=== PATIENT | male | born 1970 | race Caucasian/White ===

== ENCOUNTER 2016-10-17 14:54 | Observation (INO) | payer MEDICAID ==
[2016-10-17 15:01] VITALS: BMI 26.7
[2016-10-17] MEDS ORDERED: Sodium Chloride 0.9% 1,000 ML IV STA ×2 (15:32→18:20)
[2016-10-17] MEDS ORDERED: Morphine 4 mg/ml ISec IVP STA (15:32)
[2016-10-17 15:55] LABS: ADD MANUAL DIFF? NO
[2016-10-17 16:03] LABS: BASO # 0.02 K/mm3 (0.0-2.0); BASO % 0.6 % (0.0-3.0); EOS % 1.1 % (1.5-5.0); GRAN # 1.47 (1.4-6.5); GRAN % 41.7 % (50.0-68.0); LYMPH # 1.7 (1.2-3.4); LYMPH % 48.6 % (22.0-35.0); MEAN CELL VOLUME 77.5 fL (80.0-105.0); MEAN CORPUSCULAR HGB CONC 32.3 g/dl (31.0-37.0); MEAN PLATELET VOLUME 10.1 fl (7.0-11.0); MONO # 0.3 (0.1-0.6); PLATELET COUNT 194 10^3/uL (120.0-450.0); RED CELL DISTRIBUTION WIDTH 14.4 % (11.5-14.5); WHITE BLOOD COUNT 3.5 10^3/ul (4.5-11.0)
[2016-10-17 16:09] LABS: ALB/GLOB RATIO 1.1 (1.1-1.8); ALKALINE PHOSPHATASE 65 U/L (38-133); ALT/SGPT 229 U/L (7-56); AST/SGOT 128 U/L (15-59); BILIRUBIN,TOTAL 0.6 mg/dL (0.2-1.3); BLOOD UREA NITROGEN 12 mg/dL (7-21); CALCIUM 9.4 mg/dL (8.4-10.5); CARBON DIOXIDE 30 mmol/L (21-33); CHLORIDE 97 mmol/L (98-107); GFR AFRICAN-AMERICAN > 60; GLUCOSE,RANDOM 167 mg/dL (70-110); LIPASE 215 U/L (23-300); POTASSIUM 4.4 mmol/L (3.6-5.0); SODIUM 137 mmol/L (132-148); TOTAL PROTEIN 8.2 g/dL (5.8-8.3)
--- NOTE | 2016-10-17 16:16 | ED PDOC ---
Arrival/HPI - General Chief Complaint: Headache Time Seen by Provider: 10/17/16 15:15 Historian: Patient - History of Present Illness Narrative History of Present Illness (Text): 10/17/16 16:13 Patient past medical history of DM, complains of constant nonradiating squeezing pain to the epigastric area x 1 week. patient has been taking Pepcid and Zofran, which was described by his pmd x 4 days with no relief. Symptoms are associated nausea and decreased appetite, worse with eating, reports not having similar symptoms in the past. Otherwise: (-) vomiting, (-) diarrhea, (-) fever, (-) urinary symptoms, (-) chest pain, (-) SOB, (-) h/o GB disease or PUD , (-) melena, (-) hematochezia. Has no history of prior abdominal surgery. Patient also reports of a pressure headache which started yesterday, which he has had multiple times in the past, normally takes advil with relief. PMD Jordi Past Medical History - Provider Review Nursing Documentation Reviewed: Yes - Infectious Disease Hx of Infectious Diseases: None - Tetanus Immunization Tetanus Immunization: Unknown - Past Medical History Past Medical History: No Previous - Cardiac Hx Cardiac Disorders: Yes Hx Hypertension: Yes - Pulmonary Hx Respiratory Disorders: No - Neurological Hx Neurological Disorder: No - HEENT Hx HEENT Disorder: No - Renal Hx Renal Disorder: No - Endocrine/Metabolic Hx Endocrine Disorders: Yes Hx Diabetes Mellitus Type 2: Yes - Hematological/Oncological Hx Blood Disorders: No - Integumentary Hx Dermatological Disorder: No - Musculoskeletal/Rheumatological Hx Musculoskeletal Disorders: No - Gastrointestinal Hx Gastrointestinal Disorders: Yes Hx Gastroesophageal Reflux: Yes - Genitourinary/Gynecological Hx Genitourinary Disorders: No - Psychiatric Hx Psychophysiologic Disorder: No Hx Depression: No Hx Emotional Abuse: No Hx Physical Abuse: No Hx Substance Use: No - Past Surgical History Past Surgical History: No Previous - Anesthesia Hx Anesthesia: No Hx Anesthesia Reactions: No - Suicidal Assessment Feels Threatened In Home Enviroment: No Family/Social History - Physician Review Nursing Documentation Reviewed: Yes Family/Social History: No Known Family HX Smoking Status: Never Smoked Hx Alcohol Use: No Hx Substance Use: No Hx Substance Use Treatment: No Allergies/Home Meds Allergies/Adverse Reactions: Allergies No Known Allergies Allergy (Verified 10/17/16 15:01) Home Medications: Home Meds Medication Instructions Recorded Confirmed Atorvastatin Calcium [Lipitor] 40 mg PO DAILY 07/05/12 10/17/16 Famotidine [Pepcid] 40 mg PO DAILY 10/17/16 10/17/16 Ondansetron HCl [Zofran] 4 mg PO PRN PRN 10/17/16 10/17/16 Sitagliptin Phos/Metformin HCl 1 tab PO BID 10/17/16 10/17/16 [Janumet 50-1,000 mg Tablet] glyBURIDE [Micronase] 0 mg PO DAILY 10/17/16 10/17/16 Review of Systems - Review of Systems Constitutional: Normal. absent: Fatigue, Weight Change, Fevers Respiratory: Normal. absent: SOB, Cough, Sputum Cardiovascular: Normal. absent: Chest Pain, Palpitations, Edema Gastrointestinal: Normal, Abdominal Pain, Nausea, Appetite Changes. absent: Stool Changes, Constipation, Vomiting Genitourinary Male: Normal. absent: Dysuria, Frequency, Hematuria Musculoskeletal: Normal. absent: Arthralgias, Back Pain, Neck Pain Skin: Normal. absent: Rash, Pruritis, Skin Lesions Neurological: Normal, Headache. absent: Dizziness, Focal Weakness Physical Exam - Physical Exam Narrative Physical Exam (Text): 10/17/16 16:17 GENERAL APPEARANCE: Patient is awake, alert, oriented x 3, in mild painful distress. SKIN: Warm, dry; (-) cyanosis. EYES: (-) conjunctival pallor, (-) scleral icterus. ENMT: Mucous membranes dry. NECK: (-) tenderness, (-) stiffness, (-) lymphadenopathy. CHEST AND RESPIRATORY: (-) rales, (-) rhonchi, (-) wheezes; breath sounds equal bilaterally. HEART AND CARDIOVASCULAR: (-) irregularity; (-) murmur, (-) gallop. ABDOMEN AND GI: (-) distention. Bowel sounds active; (+) epigastric tenderness , (-) chávez's sign, (-) guarding, (-) rebound, (-) palpable masses, (-) CVA tenderness. EXTREMITIES: (-) deformity, (-) edema, (+) distal pulses. NEURO AND PSYCH: Mental status as above; (-) focal findings. Vital Signs Temp Pulse Resp BP Pulse Ox 10/17/16 21:10 94 H 16 132/94 H 99 10/17/16 19:07 108 H 18 142/92 H 99 10/17/16 18:37 100 H 18 132/79 99 10/17/16 16:02 102 H 17 135/86 99 10/17/16 15:01 98 F 94 H 16 129/88 100 Medical Decision Making ED Course and Treatment: 10/17/16 16:18 46 yo M past medical history diabetes, presents with one-week history of epigastric pain. Plan: -- Labs -- IV fluids -- Urinalysis -- EKG -- Morphine / Reglan / Pepcid -- Reassess and disposition -- US ABD Diagnostic results reviewed and discussed with the patient. Based on history, exam and diagnostic results plan will be for inpatient admission. Call placed to Dr. Bacon and case discussed, he agrees with plan for inpatient treatment. Requesting Dr. Orozco for surgical consult and Dr. Balderrama for GI. Patient states he fully agrees with and understands current plan and care. Verbalized and repeated understanding of current diagnosis and the need for inpatient treatment. I have given the patient opportunity to ask any additional questions. Bridge orders and consults placed. Re-evaluation Time: 17:30 Reassessment Condition: Re-examined, Improving,but remains with symptoms ( Patient laying in bed in no acute distress, abdomen remains soft with continued epigastric tenderness. ) - Lab Interpretations Lab Results: 10/17/16 15:50 10/17/16 15:50 Lab Results 10/17/16 19:09: Urine Color Yellow, Urine Appearance Clear, Urine pH 7.0, Ur Specific Eden 1.010, Urine Protein Negative, Urine Glucose (UA) 250 H, Urine Ketones Negative, Urine Blood Negative, Urine Nitrate Negative, Urine Bilirubin Negative, Urine Urobilinogen 0.2, Ur Leukocyte Esterase Small H, Urine RBC Negative, Urine WBC 0 - 2, Ur Epithelial Cells 0 - 2, Urine Bacteria Neg 10/17/16 15:50: Sodium 137, Potassium 4.4, Chloride 97 L, Carbon Dioxide 30, Anion Gap 14, BUN 12, Creatinine 0.8, Est GFR ( Amer) > 60, Est GFR (Non- Af Amer) > 60, Random Glucose 167 H, Calcium 9.4, Total Bilirubin 0.6, AST 128 H , ALT 229 H, Alkaline Phosphatase 65, Troponin I < 0.01, Total Protein 8.2, Albumin 4.2, Globulin 3.9, Albumin/Globulin Ratio 1.1, Lipase 215 10/17/16 15:50: PT 10.5, INR 0.97, APTT 28.3 10/17/16 15:50: WBC 3.5 L D, RBC 5.55, Hgb 13.9 L, Hct 43.0, MCV 77.5 L, MCH 25.0, MCHC 32.3, RDW 14.4, Plt Count 194, MPV 10.1, Gran % 41.7 L, Lymph % (Auto ) 48.6 H, Borden % (Auto) 8.0 H, Eos % (Auto) 1.1 L, Baso % (Auto) 0.6, Gran # 1.47, Lymph # 1.7, Borden # 0.3, Eos # 0.0, Baso # 0.02 I have reviewed the lab results: Yes (LFTs slightly elevated, WBC wnl. ) - RAD Interpretation Narrative RAD Interpretations (Text): 10/17/16 18:19 US abd: FINDINGS: LIVER: Measures approximately 15.6 cm. Smooth contour however slight increased l echogenicity of the liver parenchyma suggesting fatty infiltration. . No mass. No intrahepatic bile duct dilatation. GALLBLADDER: Gallbladder is physiologically distended. Small approximately 4.4 mm echogenic focus within the gallbladder lumen could represent gallbladder calculus and or polyp. COMMON BILE DUCT: Measures approximately 3.2 mm. No stones. No dilatation. PANCREAS: Visualized portions of the pancreas unremarkable. RIGHT KIDNEY: Measures approximately 11.3 x 5.4 x 4.5cm. Normal echogenicity. No calculus, mass, or hydronephrosis. LEFT KIDNEY: Measures approximately 11.4 x 5.6 x 5.3cm. Normal echogenicity. No calculus, mass, or hydronephrosis. SPLEEN: Exhibits normal size measuring approximately 11.3 cm in greatest dimension. No splenic mass collection or calcification. AORTA: No aneurysmal dilatation. IVC: Unremarkable. OTHER FINDINGS: None. IMPRESSION: Mild fatty hepatic infiltration. Small intraluminal gallbladder calculus and/ or gallbladder polyp as described. Radiology Orders: 10/17/16 15:32 ABDOMEN COMPLETE [US] Stat - EKG Interpretation EKG Interpretation (Text): 10/17/16 20:10 EKG: Sinus tach at 102bpm, (-) acute ST changes. Interpreted by ED Physician: Yes Type: 12 lead EKG - Medication Orders Current Medication Orders: Famotidine (Pepcid) 40 mg IV BID MARIN Fluticasone Propionate (Flonase) 1 actuation NS DAILY [facility] Hydromorphone HCl (Dilaudid) 0.5 mg IVP Q4H PRN PRN Reason: Pain, moderate (4-7) Sodium Chloride (Sodium Chloride 0.9%) 1,000 mls @ 100 mls/hr IV .Q10H STA Stop: 10/18/16 04:19 Last Admin: 10/17/16 18:55 Dose: 100 mls/hr Insulin Human Regular (Humulin R Low) 0 units SC ACHS MARIN PRN Reason: Protocol Loratadine (Claritin) 10 mg PO DAILY [facility] Montelukast Sodium (Singulair) 10 mg PO HS MARIN Last Admin: 10/17/16 23:46 Dose: 10 mg Ondansetron HCl (Zofran Inj) 4 mg IVP Q4 PRN PRN Reason: Nausea/Vomiting Last Admin: 10/17/16 23:47 Dose: 4 mg Pantoprazole Sodium (Protonix Inj) 40 mg IVP Q12 MARIN Discontinued Medications Famotidine (Pepcid) 20 mg IVP STAT STA Stop: 10/17/16 15:33 Last Admin: 10/17/16 15:51 Dose: 20 mg Sodium Chloride (Sodium Chloride 0.9%) 1,000 mls @ 1,000 mls/hr IV .Q1H STA Stop: 10/17/16 16:31 Last Admin: 10/17/16 15:52 Dose: 1,000 mls/hr Famotidine 40 mg/ Sodium (Chloride) 254 mls @ 508 mls/hr IV STAT STA Stop: 10/17/16 23:33 Last Admin: 10/18/16 00:31 Dose: 508 mls/hr Metoclopramide HCl (Reglan) 10 mg IVP STAT STA Stop: 10/17/16 15:33 Last Admin: 10/17/16 15:51 Dose: 10 mg Morphine Sulfate (Morphine) 4 mg IVP STAT STA Stop: 10/17/16 15:33 Last Admin: 10/17/16 15:51 Dose: 4 mg Re-Assess: SHAGUFTA Pain Assessment Document 10/17/16 16:51 SJ (Rec: 10/17/16 23:46 [facility] [id number]) Pain Reassessment Is this a pain reassessment? Yes Sleep Is patient sleeping during reassessment? Yes - PA / ALARM SIGNALER / Resident Statement MD/DO has reviewed & agrees with the documentation as recorded. Disposition/Present on Arrival - Present on Arrival Any Indicators Present on Arrival: No History of DVT/PE: No History of Uncontrolled Diabetes: No Urinary Catheter: No History of Decub. Ulcer: No History Surgical Site Infection Following: None - Disposition Have Diagnosis and Disposition been Completed?: Yes Diagnosis: Abdominal pain, Biliary colic, Acute cholecystitis Disposition: HOSPITALIZED Disposition Time: 18:00 Patient Plan: Admission Patient Problems: Current Active Problems Problem Status Onset Abdominal pain Acute Acute cholecystitis Acute Biliary colic Acute Condition: STABLE
[2016-10-17 16:19] LABS: INR 0.97 (0.93-1.08); PARTIAL THROMBOPLASTIN TIME 28.3 Seconds (23.7-30.8)
[2016-10-17 16:57] LABS: TROPONIN I < 0.01 ng/mL
--- NOTE | 2016-10-17 17:05 | US ---
HISTORY: epigastric pain COMPARISON: None. TECHNIQUE: Sonographic evaluation of the abdomen. FINDINGS: LIVER: Measures approximately 15.6 cm. Smooth contour however slight increased l echogenicity of the liver parenchyma suggesting fatty infiltration. . No mass. No intrahepatic bile duct dilatation. GALLBLADDER: Gallbladder is physiologically distended. Small approximately 4.4 mm echogenic focus within the gallbladder lumen could represent gallbladder calculus and or polyp. COMMON BILE DUCT: Measures approximately 3.2 mm. No stones. No dilatation. PANCREAS: Visualized portions of the pancreas unremarkable. RIGHT KIDNEY: Measures approximately 11.3 x 5.4 x 4.5cm. Normal echogenicity. No calculus, mass, or hydronephrosis. LEFT KIDNEY: Measures approximately 11.4 x 5.6 x 5.3cm. Normal echogenicity. No calculus, mass, or hydronephrosis. SPLEEN: Exhibits normal size measuring approximately 11.3 cm in greatest dimension. No splenic mass collection or calcification. AORTA: No aneurysmal dilatation. IVC: Unremarkable. OTHER FINDINGS: None. IMPRESSION: Mild fatty hepatic infiltration. Small intraluminal gallbladder calculus and/or gallbladder polyp as described.
[2016-10-17 19:29] LABS: URINE BILIRUBIN NEGATIVE (NEGATIVE); URINE BLOOD NEGATIVE (NEGATIVE); URINE GLUCOSE (UA) 250 mg/dL (NEGATIVE); URINE KETONE NEGATIVE (NEGATIVE); URINE LEUKOCYTE ESTERASE SMALL Leu/uL (NEGATIVE); URINE PROTEIN NEGATIVE mg/dL (<30 mg/dL); URINE UROBILINOGEN 0.2 E.U./dL (<1 E.U./dL)
[2016-10-17 19:36] LABS: URINE APPEARANCE CLEAR (CLEAR); URINE COLOR YELLOW (YELLOW)
[2016-10-17 19:48] LABS: URINE BACTERIA NEG (NEG); URINE EPITHELIAL CELLS 0 - 2 /hpf (0-5); URINE RBC NEGATIVE /hpf (0-2); URINE WBC 0 - 2 /hpf (0-6)
[2016-10-17] MEDS ORDERED: Morphine 2 mg/ml ISec IVP PRN (22:09)
[2016-10-17] MEDS ORDERED: HYDROmorphone 0.5 mg/0.5 ml ISec IVP PRN (22:26)
[2016-10-17] MEDS ORDERED: SODIUM CHLORIDE 0.9% IV STA (23:04)
[2016-10-17] MEDS ORDERED: FAMOTIDINE IV STA (23:04)
--- NOTE | 2016-10-17 23:25 | CP.PCM.CON ---
History of Present Illness - History of Present Illness History of Present Illness: General Surgery Dr. Orozco HPI: 46 y/o Irish M w/ PMHx of HTN, NIDDM, HLD, and GERD presents to the ED w / c/o bloating and nausea x1wk. Pt states he has has this symptoms off and on in but never this long or this bad. Pt states his abd feels distended and skin feels ready to split open. Pt has associated stabbing, squeezing epigastric pain. Both bloating and epigastric pain made worse by drinking milk. Pt's chronic reflux has also been worsening despite taking both omeprazole and Pepcid daily. Pt reports nausea but no vomiting w/ decreased desire for food as well as decreased hunger. In addition, pt reports, and confirms, soaking night sweats and chills x1wk. Pt admits to 1 episode of diarrhea daily that is preceded by intense abd cramping. Cramping and diarrhea occurs once per day but is not consistent on time of day in which it occurs. (+) headaches (chronic), dizziness, lightheadedness, myalgia. (-) CP, SOB, constipation, paresthesia, weakness, edema. PMHx: see above Meds: reviewed in chart NKDA PSHx: denies SHx: denies tobacco, EtOH, drugs FHx: mother - CVA, ; father - SCD Review of Systems - Review of Systems All systems: reviewed and no additional remarkable complaints except (see HPI) Past Patient History - Infectious Disease Hx of Infectious Diseases: None - Tetanus Immunizations Tetanus Immunization: Unknown - Past Social History Smoking Status: Never Smoked - CARDIAC Hx Cardiac Disorders: Yes Hx Hypertension: Yes - PULMONARY Hx Respiratory Disorders: No - NEUROLOGICAL Hx Neurological Disorder: No - HEENT Hx HEENT Problems: No - RENAL Hx Chronic Kidney Disease: No - ENDOCRINE/METABOLIC Hx Endocrine Disorders: Yes Hx Diabetes Mellitus Type 2: Yes - HEMATOLOGICAL/ONCOLOGICAL Hx Blood Disorders: No - INTEGUMENTARY Hx Dermatological Problems: No - MUSCULOSKELETAL/RHEUMATOLOGICAL Hx Musculoskeletal Disorders: No - GASTROINTESTINAL Hx Gastrointestinal Disorders: Yes Hx Gastroesophageal Reflux: Yes - GENITOURINARY/GYNECOLOGICAL Hx Genitourinary Disorders: No - PSYCHIATRIC Hx Psychophysiologic Disorder: No Hx Depression: No Hx Emotional Abuse: No Hx Physical Abuse: No Hx Substance Use: No - SURGICAL HISTORY Hx Surgeries: No - ANESTHESIA Hx Anesthesia: No Hx Anesthesia Reactions: No Meds Allergies/Adverse Reactions: Allergies Allergy/AdvReac Type Severity Reaction Status Date / Time No Known Allergies Allergy Verified 10/17/16 15:01 - Medications Medications: Current Medications Famotidine (Pepcid) 40 mg IV BID [facility] Fluticasone Propionate (Flonase) 1 actuation NS DAILY [facility] Hydromorphone HCl (Dilaudid) 0.5 mg IVP Q4H PRN PRN Reason: Pain, moderate (4-7) Sodium Chloride (Sodium Chloride 0.9%) 1,000 mls @ 100 mls/hr IV .Q10H STA Stop: 10/18/16 04:19 Last Admin: 10/17/16 18:55 Dose: 100 mls/hr Famotidine 40 mg/ Sodium (Chloride) 254 mls @ 508 mls/hr IV STAT STA Stop: 10/17/16 23:33 Insulin Human Regular (Humulin R Low) 0 units SC ACHS MARIN PRN Reason: Protocol Loratadine (Claritin) 10 mg PO DAILY [facility] Montelukast Sodium (Singulair) 10 mg PO HS [facility]IN Ondansetron HCl (Zofran Inj) 4 mg IVP Q4 PRN PRN Reason: Nausea/Vomiting Pantoprazole Sodium (Protonix Inj) 40 mg IVP DAILY [facility]IN Physical Exam - Constitutional Appears: Non-toxic, No Acute Distress - Head Exam Head Exam: NORMAL INSPECTION - Eye Exam Eye Exam: Normal appearance - ENT Exam ENT Exam: Mucous Membranes Moist - Respiratory Exam Respiratory Exam: NORMAL BREATHING PATTERN. absent: Accessory Muscle Use, Respiratory Distress - Cardiovascular Exam Cardiovascular Exam: Tachycardia, REGULAR RHYTHM. absent: Bradycardia - GI/Abdominal Exam GI & Abdominal Exam: Distended (minimal), Soft, Tenderness (epigastric TTP ). absent: Guarding, Hernia, Rebound, Rigid Additional comments: (-) Preston's sign - Extremities Exam Extremities exam: Positive for: normal inspection. Negative for: pedal edema, tenderness - Neurological Exam Neurological exam: Alert, Oriented x3 - Psychiatric Exam Psychiatric exam: Normal Affect, Normal Mood - Skin Skin Exam: Dry, Intact, Normal Color, Warm Results - Vital Signs Recent Vital Signs: Last Vital Signs Temp 98 F 10/17/16 15:01 Pulse 94 H 10/17/16 21:10 Resp 16 10/17/16 21:10 BP 132/94 H 10/17/16 21:10 Pulse Ox 99 10/17/16 21:10 - Labs Result Diagrams: 10/17/16 15:50 10/17/16 15:50 Labs: Laboratory Results - last 24 hr 10/17/16 22:26 POC Glucose (mg/dL) 119 H - Imaging and Cardiology US - abdomen Status: Image reviewed by me, Report reviewed by me Assessment & Plan - Assessment and Plan (Free Text) Assessment: 46 y/o M w/ epigastric pain and nausea 2/2 GB pathology vs PUD w/ underlying liver pathology - NPO, IVF - pain management - anti-emetics - transaminitis w/ normal T. bili and alk phos suggests liver pathology rather than GB - Likely GB polyp on US; no signs of acute cholecystitis - recommend EGD for evaluation of refractory GERD - f/u GI recs Will discuss w/ Dr. Ernesto Larkin DO PGY1
[2016-10-18 07:41] VITALS: BP 115/82; PULSE 96; RESP 20; TEMP 97.6; O2SAT 98
[2016-10-18] MEDS: Insulin Reg-LOW-Coverage SC SCH ×3 (08:36→22:15)
--- NOTE | 2016-10-18 08:56 | CP.PCM.PN ---
Subjective - Date & Time of Evaluation Date of Evaluation: 10/18/16 Time of Evaluation: 07:00 - Subjective Subjective: General Surgery Dr. Orozco Pt S&E @bedside. NAEO. pain and nausea improved. c/o pressure behind his eyes x2days but headache improved from last night. denies vomiting. NPO but requesting food. Objective - Vital Signs/Intake and Output Vital Signs (last 24 hours): Temp Pulse Resp BP Pulse Ox 97.6 F 96 H 20 115/82 98 10/18/16 06:00 10/18/16 06:00 10/18/16 06:00 10/18/16 06:00 10/18/16 06:00 Intake and Output: 10/18/16 10/18/16 06:59 18:59 Intake Total 860 Output Total 500 Balance 360 - Medications Medications: Current Medications Famotidine (Pepcid) 40 mg IV BID [facility] Fluticasone Propionate (Flonase) 1 actuation NS DAILY [facility] Hydromorphone HCl (Dilaudid) 0.5 mg IVP Q4H PRN PRN Reason: Pain, moderate (4-7) Last Admin: 10/18/16 03:15 Dose: 0.5 mg Insulin Human Regular (Humulin R Low) 0 units SC ACHS MARIN PRN Reason: Protocol Last Admin: 10/18/16 08:36 Dose: 1 units Loratadine (Claritin) 10 mg PO DAILY [facility] Montelukast Sodium (Singulair) 10 mg PO HS MARIN Last Admin: 10/17/16 23:46 Dose: 10 mg Ondansetron HCl (Zofran Inj) 4 mg IVP Q4 PRN PRN Reason: Nausea/Vomiting Last Admin: 10/17/16 23:47 Dose: 4 mg Pantoprazole Sodium (Protonix Inj) 40 mg IVP Q12 MARIN - Labs Labs: PT 10.5 Seconds (9.9-11.8) 10/17/16 15:50 INR 0.97 (0.93-1.08) 10/17/16 15:50 APTT 28.3 Seconds (23.7-30.8) 10/17/16 15:50 - Constitutional Appears: Non-toxic, No Acute Distress - Head Exam Head Exam: NORMAL INSPECTION - Eye Exam Eye Exam: Normal appearance - ENT Exam ENT Exam: Mucous Membranes Moist - Respiratory Exam Respiratory Exam: NORMAL BREATHING PATTERN. absent: Accessory Muscle Use, Respiratory Distress - Cardiovascular Exam Cardiovascular Exam: absent: Bradycardia, Tachycardia - GI/Abdominal Exam GI & Abdominal Exam: Distended (minimal), Guarding (voluntary), Soft, Tenderness (epigatric TTP). absent: Rigid, Hernia, Mass, Rebound - Neurological Exam Neurological Exam: Alert, Awake, Oriented x3 - Psychiatric Exam Psychiatric exam: Normal Affect, Normal Mood - Skin Skin Exam: Dry, Intact, Normal Color, Warm Assessment and Plan - Assessment and Plan (Free Text) Assessment: 46 y/o M w/ epigastric abd pain - f/u GI recs - cont pain management - cont PPI/H2 bong - anti-emetic - f/u AM labs Further recs per Dr. Ernesto Larkin DO PGY1
[2016-10-18 09:30] LABS: ADD MANUAL DIFF? NO
[2016-10-18 09:36] LABS: BASO # 0.02 K/mm3 (0.0-2.0); BASO % 0.4 % (0.0-3.0); EOS # 0.1 (0.0-0.7); GRAN # 2.27 (1.4-6.5); GRAN % 45.5 % (50.0-68.0); HEMATOCRIT 42.1 % (42.0-52.0); LYMPH # 2.3 (1.2-3.4); LYMPH % 45.5 % (22.0-35.0); MEAN CELL VOLUME 77.4 fL (80.0-105.0); MEAN CORPUSCULAR HEMOGLOBIN 25.2 pg (25.0-35.0); MEAN CORPUSCULAR HGB CONC 32.5 g/dl (31.0-37.0); MEAN PLATELET VOLUME 9.7 fl (7.0-11.0); MONO # 0.4 (0.1-0.6); MONO % 7.6 % (1.0-6.0); PLATELET COUNT 198 10^3/uL (120.0-450.0); RED CELL DISTRIBUTION WIDTH 14.3 % (11.5-14.5)
--- NOTE | 2016-10-18 09:56 | CARD ---
APPROVED REPORT EKG Measurement Heart [id number] <Conclusion> Sinus tachycardia Otherwise normal ECG
[2016-10-18 10:00] LABS: ALB/GLOB RATIO 1.1 (1.1-1.8); ALKALINE PHOSPHATASE 59 U/L (38-133); ALT/SGPT 197 U/L (7-56); AST/SGOT 103 U/L (15-59); BILIRUBIN,TOTAL 0.6 mg/dL (0.2-1.3); BLOOD UREA NITROGEN 9 mg/dL (7-21); CARBON DIOXIDE 28 mmol/L (21-33); CHLORIDE 99 mmol/L (98-107); GFR AFRICAN-AMERICAN > 60; GLUCOSE,RANDOM 153 mg/dL (70-110); POTASSIUM 4.2 mmol/L (3.6-5.0); SODIUM 136 mmol/L (132-148); TOTAL PROTEIN 7.8 g/dL (5.8-8.3)
[2016-10-18] MEDS ORDERED: Fluticasone Nasal 50 mcg/Spray NS SCH (10:00)
--- NOTE | 2016-10-18 21:32 | HP ---
The patient was seen on 10/17/2016. HISTORY OF PRESENT ILLNESS: This is a 46-year-old [place] male with history of diabetes type 2 on m eds and for years, history of kidney stones, abdominal pain, diarrhea, came into the hospital with se arsen epigastric discomfort and pain for the last few days. Had bloating in his belly that seems is n ot getting better. He also has diarrhea for more than 3 weeks. He does have diarrhea intermittently . Had a colonoscopy in the past and was seen by gastroenterology that he should follow up with for h is persistent symptoms and came in because of upper abdominal pain, feeling nauseous, cannot function and came to the ER for evaluation. Denied any fever but according to the family, he does have night sweats. PAST MEDICAL HISTORY: As I mentioned, chronic diarrhea, abdominal pain, kidney stones, chronic neck pain, chronic low back pain, he does have allergic rhinitis. REVIEW OF SYSTEMS: As in the present illness, plus he does have a headache on and off. MEDICATIONS: The patient takes the following meds: He takes Janumet b.i.d., Pepcid 40 mg on ce a day, Zofran p.o. p.r.n. was given as outpatient, Lipitor 40 once a day. PHYSICAL EXAMINATION: GENERAL: The patient lying in the bed, seems to be in distress from headache and he does have allerg y according to him and also acid reflux. HEAD AND NECK: Otherwise normal. No JVD, no thyromegaly. CHEST: Clear, good entry. CARDIAC: First and second sounds are normal. ABDOMEN: Soft, tender in epigastric area, much less right upper quadrant area. EXTREMITIES: No edema. NEUROLOGICAL: Normal. LABORATORY DATA: Shows white count 3.5, hemoglobin 13.9, hematocrit 43.0, platelets 194. Chemistry shows sodium 137, potassium 4.4, chloride 97, bicarbonate 30, BUN 12, creatinine 0.8, blood sugar 167 . His AST and ALT is elevated. AST 128, ALT 229. Troponin is negative. Amylase and lipase is dinesh l. The patient also had ultrasound that shows possible gallstone, single stone or a gallbladder poly p, which is less than 1 cm. IMPRESSION AND PLAN: 1. A 46-year-old male came in with abdominal pain, epigastric mainly, more acid. He also complained of headache. We will admit the patient for observation for persistent symptoms. We will give him I V Pepcid, IV Protonix, n.p.o., IV fluids. GI consult and surgical consults. I believe it is more an acid than gallbladder issue. 2. Elevated liver function tests, could be related to Lipitor. 3. Diarrhea. I am going to discontinue metformin and will observe the patient. Possibly could be a lso irritable bowel syndrome; however, we have to observe diarrhea with the metformin if it is relate d. We will follow up on that. Also acid reflux and diarrhea. We should think about hypergastrinemi a. Maybe will check the gastrin level. Will speak with GI for further evaluation. Other considerati on could be irritable bowel syndrome dominant diarrhea. We will continue current treatment for now. We will follow up the patient clinically for his diabetes. Continue insulin coverage. Follow up cl inically. Thee Bacon MD cc: [phone] TT: 10/18/2016 21:31:38 rn
--- NOTE | 2016-10-19 07:48 | CON ---
DATE: 10/18/2016 This is a 46-year-old patient with a past medical history of diabetes mellitus, admitted with epigast miguel discomfort, bloating sensation. The patient has episodes of some loose bowel movements, was foun d to have worsening of the symptoms over the past 4 days. The patient came to the Emergency Room. T he patient did have blood tests done, which showed elevated transaminases. GI consult was requested to evaluate it. OTHER PAST MEDICAL HISTORY: Positive as above. SOCIAL HISTORY: Denies smoking. No alcohol. REVIEW OF SYSTEMS: Positive as above. Other systems reviewed. ALLERGIES: No known drug allergy. PHYSICAL EXAMINATION: GENERAL: The patient is lying on the bed, not in acute distress. VITAL SIGNS: Temperature is 97.6, blood pressure is 115/82, pulse 96. HEENT: Atraumatic, anicteric. NECK: Supple. HEART: S1, S2 heard. LUNGS: Bilateral air entry present. ABDOMEN: Soft. There is no mass palpable. No tenderness. EXTREMITIES: No edema, no cyanosis. NEUROLOGIC: Alert, oriented. Moves all the extremities. LABORATORY DATA: Hemoglobin 13.7, hematocrit 42.1, WBCs 5.0, platelets 198. The patient's MCV is lo w at 77.4. Chemistry shows AST is elevated at 103, ALT is 197. The patient had ultrasound scan of the abdomen. It shows small gallstone versus gallbladder polyp. IMPRESSION: This is a 46-year-old patient with diabetes mellitus, presented to the Emergency Room wi th a complaint of bloating and abdominal discomfort, symptoms worsening over the period of 4 days. T he patient had an ultrasound scan. The ultrasound showed echogenic focus in the gallbladder, polyp v ersus stone. Transaminases mildly elevated. Alkaline phosphatase and bilirubin normal. Common bile duct shows only 3 mm. The differential diagnosis for elevated LFTs should include chronic hepatitis , nonalcoholic hepatitis and autoimmune liver disease also to be considered. The likelihood of common bile duct stone is less given the normal alkaline phosphatase and normal common bile duct. RECOMMENDATION: 1. Will need followup of the LFTs. 2. Hepatitis profile, autoimmune markers. 3. The patient also had a microcytosis. Would benefit from iron studies and hemoglobin electrophore sis to rule out any thalassemia. 4. The patient will be started on a clear liquid diet, advance it to soft diet and follow up the LFT s in a.m. Thank you very much for allowing us to participate in the care of the patient. Joycelyn Balderrama MD cc: [id number] TT: 10/19/2016 07:47:25 Confirmation # [id number] Dictation # [id number] en
--- NOTE | 2016-10-20 18:46 | DS ---
HISTORY OF PRESENT ILLNESS: His main complaint is abdominal pain. The patient was evaluated by GI a nd surgical consult. Ultrasound of the gallbladder shows a small polyp 4-6 mm, no gallstones. The p atoswaldo also has a severe acid reflux, so he was given Protonix and Pepcid. It seems helping him and advised to follow up as outpatient. There is no surgery at this time needed. His liver enzymes have been improved in the past with stopping Lipitor and he had serology and workup and it was negative. We will reevaluate him. He should follow up with the GI consult who did the endoscopy for him and [facility] for his liver enzyme abnormalities. PHYSICAL EXAMINATION ON DISCHARGE: GENERAL: Stable. No complaints. VITAL SIGNS: Temperature is 97.6, heart rate 96, blood pressure 115/82, respirations 20, saturation 98% on room air. HEAD AND NECK: Normal. No JVD. No thyromegaly. CHEST: Clear, good air entry. CARDIAC: First and second sounds are normal. ABDOMEN: Soft, mild epigastric tenderness. EXTREMITIES: No edema. NEUROLOGIC: Normal. LABORATORY DATA: Shows white count 5, hemoglobin 16.7, hematocrit 42.1, platelets 198. His chemistr y noted for sodium 136, potassium 4.2, chloride 99, bicarb 28, BUN 9, creatinine 0.8. Liver enzymes 103 AST, ALT 197, alkaline phosphatase normal. Blood sugar 153. Bilirubin was normal. DISCHARGE DIAGNOSES: 1. Acute abdominal pain, probably due to acute gastritis. 2. Gallbladder polyps. The patient advised to follow up ultrasound every year and to monitor his po lyps and may need removal if it is more than 1 cm. 3. Diabetes type 2. The patient advised to discontinue metformin because of possible associated brii rrhea. The patient has no diarrhea here in the hospital. 4. Chronic liver enzyme elevations. Probably medication related. Follow up with the GI consult as outpatient. We will discharge the patient home. Follow up in a week. Thee Bacon MD cc: [id number] TT: 10/20/2016 18:46:08 rickie
== END 2016-10-18 23:14 | disposition home or self-care (01) ==
LOC: ED 14:54 → INTOOBSV 20:38 → ERH 20:38 → 3RSO 21:52
PROVIDERS: ADMIT Internal Medicine; ATTEND Internal Medicine
DX: K29.00 Acute gastritis without bleeding (principal); I10 Essential (primary) hypertension; E11.9 Type 2 diabetes mellitus without complications; K82.4 Cholesterolosis of gallbladder; R51 Headache; R79.89 Other specified abnormal findings of blood chemistry; K21.9 Gastro-esophageal reflux disease without esophagitis; R19.7 Diarrhea, unspecified; T38.3X5A Adverse effect of insulin and oral hypoglycemic [antidiabetic] drugs, initial encounter; E78.5 Hyperlipidemia, unspecified; Z79.84 Long term (current) use of oral hypoglycemic drugs; Z87.442 Personal history of urinary calculi; Z82.3 Family history of stroke
CPT/HCPCS: 36415; 76700; 80053; 80074; 81001; 82948; 83690; 84484; 85025; 85610; 85730; 87086; 93005; 96361; 96365; 96375; 96376; 99285; C9113; G0378; J1170; J2270; J2405; J2765; J7040